=== PATIENT | female | born 1970 | race American Indian/Alaskan Native ===

== ENCOUNTER 2016-07-27 19:30 | Emergency (ER) | payer MEDICAID, OTHER ==
[2016-07-27 19:31] VITALS: BMI 33.7
[2016-07-27 19:37] VITALS: BP 111/76; PULSE 61; RESP 16; TEMP 98; O2SAT 100
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
== END 2016-07-27 20:58 | disposition home or self-care (01) ==
LOC: ED 19:30
DX: M54.9 Dorsalgia, unspecified (principal); V49.49XA Driver injured in collision with other motor vehicles in traffic accident, initial encounter; Y92.410 Unspecified street and highway as the place of occurrence of the external cause
CPT/HCPCS: 72110; 96372; 99283; J1885

== ENCOUNTER 2017-05-04 03:06 | Emergency (ER) | payer MEDICAID, OTHER ==
[2017-05-04 03:07] VITALS: BMI 33.7
[2017-05-04 03:17] VITALS: TEMP 98.2
--- NOTE | 2017-05-04 03:49 | ED PDOC ---
Arrival/HPI - General Chief Complaint: Chest Pain Time Seen by Provider: 05/04/17 03:14 Historian: Patient - Critical Care Critical Care Minutes: 60 minutes - History of Present Illness Narrative History of Present Illness (Text): you were treated in the ED today for chest pressure mid-sternal without radiation, and you were otherwise without any nausea/vomiting/headache/dizziness /difficulty breathing/coughing/abdomen pain/numbness/tingling/loss of limb function/thoughts to harm yourself or others or hallucinations/travel/prior blood clots/cancer history but you recently stopped depo control. 05/04/17 03:45 Time/Duration: 1 hour Symptom Onset: Gradual Symptom Course: Improving Quality: Pressure Severity Level: 1 Activities at Onset: Rest Context: Sitting Past Medical History - Provider Review Nursing Documentation Reviewed: Yes - Travel History Have you recently traveled outside [place] w/in the past 3 mons?: No - Cardiac Hx Cardiac Disorders: No - Pulmonary Hx Respiratory Disorders: No - Neurological Hx Neurological Disorder: No - HEENT Hx HEENT Disorder: No - Renal Hx Renal Disorder: No - Endocrine/Metabolic Hx Endocrine Disorders: No - Hematological/Oncological Hx Blood Disorders: No - Integumentary Hx Dermatological Disorder: No - Musculoskeletal/Rheumatological Hx Musculoskeletal Disorders: Yes Hx Back Pain: Yes - Gastrointestinal Hx Gastrointestinal Disorders: No - Genitourinary/Gynecological Hx Genitourinary Disorders: No - Psychiatric Hx Psychophysiologic Disorder: No Hx Substance Use: No Family/Social History - Physician Review Nursing Documentation Reviewed: Yes Family/Social History: No Known Family HX Smoking Status: Never Smoked Hx Alcohol Use: Yes Frequency of alcohol use: Socially Hx Substance Use: No Allergies/Home Meds Allergies/Adverse Reactions: Allergies No Known Allergies Allergy (Verified 07/27/16 19:32) Home Medications: Home Meds Medication Instructions Recorded Confirmed Ibuprofen [Motrin Tab] 600 mg PO Q6 PRN 05/04/17 05/04/17 Review of Systems - Physician Review All systems were reviewed & negative as marked: Yes - Review of Systems Constitutional: Normal Eyes: Normal ENT: Normal Respiratory: Normal Cardiovascular: Chest Pain Gastrointestinal: Normal Genitourinary Female: Normal Musculoskeletal: Normal Skin: Normal Neurological: Normal Endocrine: Normal Hemo/Lymphatic: Normal Psychiatric: Normal Physical Exam Vital Signs Reviewed: Yes Vital Signs Temp Pulse Resp BP Pulse Ox 05/04/17 03:15 98.2 F 99 H 18 149/94 H 100 Temperature: Afebrile Blood Pressure: Hypertensive Pulse: Regular Respiratory Rate: Normal Appearance: Positive for: Well-Appearing, Non-Toxic, Comfortable Pain Distress: None Mental Status: Positive for: Alert and Oriented X 3 - Systems Exam Head: Present: Atraumatic, Normocephalic Pupils: Present: PERRL Extroacular Muscles: Present: EOMI Conjunctiva: Present: Normal Ears: Present: Normal Mouth: Present: Moist Mucous Membranes Pharnyx: Present: Normal Nose (External): Present: Atraumatic Nose (Internal): Present: Normal Inspection Neck: Present: Normal Range of Motion Respiratory/Chest: Present: Clear to Auscultation, Good Air Exchange Cardiovascular: Present: Regular Rate and Rhythm Abdomen: No: Tenderness, Distention, Normal Bowel Sounds, Peritoneal Signs, Rebound, Guarding, McBurney's Point Tender, Rovsing's Sign Present, Hernias, Feeding Tubes, Ostomy Tubes, Mass/Organomegaly, Scars, Other Back: Present: Normal Inspection Upper Extremity: Present: Normal Inspection Lower Extremity: Present: Normal Inspection Neurological: Present: GCS=15, CN II-XII Intact, Speech Normal, Motor Func Grossly Intact Skin: Present: Warm, Normal Color Psychiatric: Present: Alert, Oriented x 3, Normal Insight, Normal Concentration Medical Decision Making ED Course and Treatment: you were treated in the ED today for chest pressure mid-sternal without radiation, and you were otherwise without any nausea/vomiting/headache/dizziness /difficulty breathing/coughing/abdomen pain/numbness/tingling/loss of limb function/thoughts to harm yourself or others or hallucinations/travel/prior blood clots/cancer history but you recently stopped depo control. denies drugs. you were sitting up, comfortable, alert/oriented, good strength/sensation , no abdomen tenderness, pink skin, no fever temp 98.2, stable heart rate 99, stable breathing rate 18, excellent oxygen level 100% room air, elevated blood pressure 149/94 which we recommend followup primary care 2-3 days repeat and determine further treatment, no infection count on blood tests 10 stable blood levels hemaglobin/platelet 13/282, stable chemistry, heart blood test negative, urine test negative, radiology ct chest no acute findings, ECG normal sinus rhythm, aspirin, intravenous fluids, observation done in the ED, counselled to stay in the hospital but you refused and cautioned for complications/ but you stated will followup primary care physician, and discharged home. 1. recommend followup primary care 1-2 days to determine further care, referral to cardiology clinic, referral to pulmonary clinic for lung scarring to ensure no complications/cancer development. 2. if any worsening pain, fever, chills, nausea, vomiting, any medical condition then return to the ED. 05/04/17 03:48 05/04/17 04:19 05/04/17 05:18 05/04/17 05:19 Reassessment Condition: Improved - Lab Interpretations Lab Results: 05/04/17 03:22 05/04/17 03:22 Lab Results 05/04/17 03:22: PT 11.2, INR 0.97, APTT 28.2, D-Dimer, Quantitative 261 H 05/04/17 03:22: Sodium 142, Potassium 3.6, Chloride 104, Carbon Dioxide 25, Anion Gap 16, BUN 12, Creatinine 0.9, Est GFR ( Amer) > 60, Est GFR (Non- Af Amer) > 60, Random Glucose 117 H, Calcium 9.7, Magnesium 2.2, Total Bilirubin 0.3, AST 21, ALT 23, Alkaline Phosphatase 71, Lactate Dehydrogenase 633, Total Creatine Kinase 102, Troponin I < 0.01, Total Protein 7.7, Albumin 4.3, Globulin 3.4, Albumin/Globulin Ratio 1.3, Lipase 62 05/04/17 03:22: WBC 10.4, RBC 4.37, Hgb 13.1, Hct 39.3, MCV 89.9, MCH 30.0, MCHC 33.3, RDW 13.0, Plt Count 282, MPV 9.5, Gran % 45.1 L, Lymph % (Auto) 42.0 H, Moore % (Auto) 10.2 H, Eos % (Auto) 2.2, Baso % (Auto) 0.5, Gran # 4.70, Lymph # (Auto) 4.4 H, Moore # (Auto) 1.1 H, Eos # (Auto) 0.2, Baso # (Auto) 0.05 I have reviewed the lab results: Yes - RAD Interpretation Radiology Orders: 05/04/17 04:17 ANGIO CHEST PE PROTOCOL [CT] Stat Planer Stone: Radiologist - EKG Interpretation Interpreted by ED Physician: Yes (NSR, flipped t waves avr, v1, iii, flattened v2) Type: 12 lead EKG - Medication Orders Current Medication Orders: Discontinued Medications Aspirin (Aspirin) 325 mg PO STAT STA Stop: 05/04/17 03:43 Last Admin: 05/04/17 04:13 Dose: 325 mg Sodium Chloride (Sodium Chloride 0.9%) 1,000 mls @ 999 mls/hr IV .Q1H1M STA Stop: 05/04/17 05:18 Last Admin: 05/04/17 05:11 Dose: 999 mls/hr eMAR Start Stop Document 05/04/17 05:11 IT (Rec: 05/04/17 05:11 IT [id number]) Intravenous Solution Start Date 05/04/17 Start Time 05:11 End Date 05/04/17 Pantoprazole Sodium (Protonix Inj) 40 mg IVP STAT STA Stop: 05/04/17 03:45 Last Admin: 05/04/17 04:13 Dose: 40 mg IVP Administration Document 05/04/17 04:13 IT (Rec: 05/04/17 04:13 IT [id number]) Charges for Administration # of IVP Administrations 1 Disposition/Present on Arrival - Present on Arrival Any Indicators Present on Arrival: Yes History of DVT/PE: No History of Uncontrolled Diabetes: No Urinary Catheter: No History of Decub. Ulcer: No History Surgical Site Infection Following: None - Disposition Have Diagnosis and Disposition been Completed?: Yes Diagnosis: Chest pain Disposition: AGAINST MEDICAL ADVICE Disposition Time: 05:34 Patient Plan: Discharge Condition: IMPROVED Discharge Instructions (ExitCare): Chest Pain (ED) Additional Instructions: you were treated in the ED today for chest pressure mid-sternal without radiation, and you were otherwise without any nausea/vomiting/headache/dizziness /difficulty breathing/coughing/abdomen pain/numbness/tingling/loss of limb function/thoughts to harm yourself or others or hallucinations/travel/prior blood clots/cancer history but you recently stopped depo control. denies drugs. you were sitting up, comfortable, alert/oriented, good strength/sensation , no abdomen tenderness, pink skin, no fever temp 98.2, stable heart rate 99, stable breathing rate 18, excellent oxygen level 100% room air, elevated blood pressure 149/94 which we recommend followup primary care 2-3 days repeat and determine further treatment, no infection count on blood tests 10 stable blood levels hemaglobin/platelet 13/282, stable chemistry, heart blood test negative, urine test negative, radiology ct chest no acute findings, ECG normal sinus rhythm, aspirin, intravenous fluids, observation done in the ED with improvement, counselled to stay in the hospital but you refused and cautioned for complications/ but you stated will followup primary care physician, and discharged home. 1. recommend followup primary care 1-2 days to determine further care, referral to cardiology clinic, referral to pulmonary clinic for lung scarring to ensure no complications/cancer development. 2. if any worsening pain, fever, chills, nausea, vomiting, any medical condition then return to the ED. Referrals: Stacy Gu DO [Primary Care Provider] - Follow up with primary Forms: [employer] (Uzbek)
[2017-05-04 04:00] LABS: BASO # 0.05 K/mm3 (0.0-2.0); BASO % 0.5 % (0.0-3.0); EOS # 0.2 (0.0-0.7); EOS % 2.2 % (1.5-5.0); GRAN # 4.7 (1.4-6.5); GRAN % 45.1 % (50.0-68.0); HEMOGLOBIN 13.1 g/dL (12.0-16.0); LYMPH # 4.4 (1.2-3.4); MEAN CELL VOLUME 89.9 fl (80.0-105.0); MEAN CORPUSCULAR HGB CONC 33.3 g/dl (31.0-37.0); MEAN PLATELET VOLUME 9.5 fl (7.0-11.0); MONO # 1.1 (0.1-0.6); MONO % 10.2 % (1.0-6.0); RBC 4.37 10^6/uL (3.5-6.1); WHITE BLOOD COUNT 10.4 10^3/ul (4.5-11.0)
[2017-05-04 04:12] LABS: INR 0.97 (0.93-1.08); PARTIAL THROMBOPLASTIN TIME 28.2 Seconds (25.1-36.5); PROTHROMBIN TIME 11.2 SECONDS (9.4-12.5)
[2017-05-04 04:14] LABS: ALB/GLOB RATIO 1.3 (1.1-1.8); ALBUMIN 4.3 g/dL (3.0-4.8); ALT/SGPT 23 U/L (7-56); AST/SGOT 21 U/L (14-36); BLOOD UREA NITROGEN 12 mg/dL (7-21); CALCIUM 9.7 mg/dL (8.4-10.5); GFR AFRICAN-AMERICAN > 60; GFR NON-AFRICAN AMERICAN > 60; LIPASE 62 U/L (23-300); MAGNESIUM 2.2 mg/dL (1.7-2.2)
[2017-05-04] MEDS ORDERED: Sodium Chloride 0.9% 1,000 ML IV STA (04:18)
[2017-05-04 04:20] LABS: TROPONIN I < 0.01 ng/mL
[2017-05-04] MEDS ORDERED: Iohexol 350 MG/100 ML VIAL ONE (04:28)
--- NOTE | 2017-05-04 05:08 | CT ---
EXAM: CT Angiography Chest With Intravenous Contrast CLINICAL HISTORY: 47 years old, female; Pain; Chest pain; Additional info: 47yof, cp, hormonal tx, elevated d-dimer, eval pe. TECHNIQUE: Axial computed tomographic angiography images of the chest with intravenous contrast using pulmonary embolism protocol. All CT scans at this facility use one or more dose reduction techniques, viz.: automated exposure control; ma/kV adjustment per patient size (including targeted exams where dose is matched to indication; i.e. head); or iterative reconstruction technique. MIP reconstructed images were created and reviewed. Coronal and sagittal reformatted images were created and reviewed. CONTRAST: 100 mL of omnipaque administered intravenously. COMPARISON: No relevant prior studies available. FINDINGS: Limitations: Motion artifact - mild. Pulmonary arteries: No definite pulmonary embolism. Aorta: No aneurysm. No dissection. Lungs: No consolidation. Minimal apical scarring. Pleural space: No significant effusion. No pneumothorax. Heart: No cardiomegaly. No significant pericardial effusion. Bones/joints: No acute fracture. Soft tissues: Unremarkable. Lymph nodes: No pathologically enlarged lymph nodes. IMPRESSION: 1. No definite CT evidence of pulmonary embolism. 2. Incidental/non-acute findings are described above.
[2017-05-04 06:03] VITALS: BP 122/66; PULSE 95; RESP 17; O2SAT 98
--- NOTE | 2017-05-04 16:41 | CARD ---
APPROVED REPORT EKG Measurement Heart [id number] <Conclusion> Normal sinus rhythm Incomplete right bundle branch block Borderline ECG
== END 2017-05-04 06:03 | disposition left against medical advice (07) ==
LOC: ED 03:06
DX: R07.9 Chest pain, unspecified (principal)
CPT/HCPCS: 71275; 80053; 82550; 83615; 83690; 83735; 84484; 85025; 85378; 85610; 85730; 93005; 96374; 99284; C9113; J7040; Q9967